=== PATIENT | female | born 1965 | race African-American/Black ===

== ENCOUNTER 2016-07-23 22:02 | Emergency (ER) | payer BC ==
[~2016-07-23] VITALS: Ht 160 cm; Wt 86.0 kg
[~2016-07-23 22:02] MED LIST: DIOVAN HCT 11 TABLET PO; ERYTHROMYC1 APPLICAT LEFT EYE; FLONASE ALLERG9.9 ML BOTH NARES; LIPITOR10 MG PO; METFORMIN HCL500 MG PO; MULTIPLE VITAM1 EACH PO; OMEGA-3 FISH O1 EAC8 PO; PROVENTIL HFA6.7 GM IH; VICTOZA0.6 MG/0.1 SC
[2016-07-24] VITALS: BP 152/100
== END 2016-07-24 | disposition home or self-care (01) ==
LOC: EME 22:02
DX: S93.602A Unspecified sprain of left foot, initial encounter (principal); X50.1XXA Overexertion from prolonged static or awkward postures, initial encounter
CPT/HCPCS: 73630; 99281; 99283